=== PATIENT | female | born 1985 | race Two or more races ===

== ENCOUNTER 2020-11-02 02:54 | Emergency (ER) | payer OTHER, SELFPAY ==
[2020-11-02 03:01] VITALS: BP 123/66; PULSE 88; TEMP 98.8; BMI 27.4
== END 2020-11-02 03:26 | disposition home or self-care (01) ==
LOC: FER 02:54
DX: Z77.21 Contact with and (suspected) exposure to potentially hazardous body fluids (principal)
CPT/HCPCS: 99282-25

== ENCOUNTER 2021-02-11 10:38 | Emergency (ER) | payer OTHER ==
[2021-02-11 10:46] VITALS: BP 115/87; PULSE 74; TEMP 98.2
== END 2021-02-11 11:54 | disposition home or self-care (01) ==
LOC: FER 10:38
DX: Z77.21 Contact with and (suspected) exposure to potentially hazardous body fluids (principal)
CPT/HCPCS: 99281-25

== ENCOUNTER 2022-06-09 16:12 | Emergency (ER) | payer OTHER ==
[2022-06-09 16:22] VITALS: BP 136/93; PULSE 82; RESP 16; TEMP 98.8; BMI 28.3
[2022-06-09] MEDS ORDERED: ACETAMINOPHEN 325 MG TABLET (FP) PO ONE (16:33)
[2022-06-09] MEDS ORDERED: ACETAMINOPHEN 325 MG TABLET (FP) ONE (16:54)
== END 2022-06-09 17:11 | disposition home or self-care (01) ==
LOC: FER 16:12
DX: S80.211A Abrasion, right knee, initial encounter (principal); Y99.8 Other external cause status
CPT/HCPCS: 99283-25

== ENCOUNTER 2022-07-17 12:35 | Emergency (ER) | payer OTHER ==
[2022-07-17 12:46] VITALS: BP 145/97; PULSE 96; RESP 20; TEMP 98.7; BMI 28.3
== END 2022-07-17 13:28 | disposition home or self-care (01) ==
LOC: FER 12:35
DX: S61.001A Unspecified open wound of right thumb without damage to nail, initial encounter (principal); S61.206A Unspecified open wound of right little finger without damage to nail, initial encounter; Y99.8 Other external cause status
CPT/HCPCS: 99282-25

== ENCOUNTER 2022-09-27 10:33 | Emergency (ER) | payer OTHER ==
[2022-09-27 10:58] VITALS: BP 138/89; PULSE 70; RESP 20; TEMP 98.3; BMI 27.4
== END 2022-09-27 11:29 | disposition home or self-care (01) ==
LOC: FER 10:33
DX: S50.811A Abrasion of right forearm, initial encounter (principal); S60.413A Abrasion of left middle finger, initial encounter; W22.8XXA Striking against or struck by other objects, initial encounter
CPT/HCPCS: 99282-25

== ENCOUNTER 2023-10-12 10:36 | Emergency (ER) | payer OTHER ==
[2023-10-12 11:02] VITALS: BP 129/92; PULSE 72; RESP 16; TEMP 99.4; BMI 29.2
== END 2023-10-12 11:17 | disposition home or self-care (01) ==
LOC: FER 10:36
DX: S61.216A Laceration without foreign body of right little finger without damage to nail, initial encounter (principal); W26.8XXA Contact with other sharp object(s), not elsewhere classified, initial encounter
CPT/HCPCS: 99283-25